=== PATIENT | female | born 1995 | race Caucasian/White ===

== ENCOUNTER 2020-08-10 12:56 | Emergency (ER) | payer OTHER ==
[~2020-08-10] VITALS: Ht 157.5 cm; Wt 55.2 kg
[2020-08-10 12:57] VITALS: BP 120/69
[2020-08-10] MEDS ORDERED: NORL0.35 PO (13:12)
--- NOTE | 2020-08-10 13:40 | REP ---
INDICATION: trauma COMPARISON: None. TECHNIQUE: AP, lateral, bilateral oblique views. FINDINGS: No acute fracture or dislocation. Skeletal structures and joint spaces are intact and normal. Ankle mortise appears stable. No subcutaneous emphysema or radiodense foreign body. IMPRESSION: Normal right ankle radiograph series. No fracture or dislocation. <Electronically signed by David Birmingham > 08/10/20 [id number]
== END 2020-08-10 14:47 | disposition home or self-care (01) ==
LOC: M ED 12:56
DX: S93.491A Sprain of other ligament of right ankle, initial encounter (principal); W10.8XXA Fall (on) (from) other stairs and steps, initial encounter; Y92.098 Other place in other non-institutional residence as the place of occurrence of the external cause; Y93.01 Activity, walking, marching and hiking; Y99.8 Other external cause status; Z79.3 Long term (current) use of hormonal contraceptives

== ENCOUNTER 2022-04-08 00:45 | Emergency (ER) | payer OTHER ==
[~2022-04-08] VITALS: Ht 157.5 cm; Wt 55.7 kg
[~2022-04-08 00:45] MED LIST changes: -ACET1PAC PO; -ACET1TAB55 PO
[2022-04-08 00:49] VITALS: BP 125/73
[2022-04-08] MEDS ORDERED: ACET1PAC PO (00:55)
== END 2022-04-08 02:27 | disposition left against medical advice (07) ==
LOC: M ED 00:45
DX: Z53.29 Procedure and treatment not carried out because of patient's decision for other reasons (principal)

== ENCOUNTER → 2022-04-08 | Outpatient (CLI) | payer OTHER ==
[~2022-04-08] MED LIST: ACET1PAC PO; ACET1TAB55 PO; NORL0.35 PO
== END ==
LOC: M RAD 13:12
PROVIDERS: ATTEND Physician Assistant Medical
DX: R10.2 Pelvic and perineal pain (principal)

== ENCOUNTER 2022-04-12 04:27 | Day surgery (SDC) | payer OTHER ==
[~2022-04-12] VITALS: Ht 157.5 cm; Wt 55.4 kg
[2022-04-12] VITALS (7 sets, daily range): BP systolic 98–128; BP diastolic 51–71
[~2022-04-12 04:27] MED LIST changes: +ACET1PAC PO
[2022-04-12 05:25] LABS: BASO # 0.1 10^3/uL (0.0-0.2); BASO % 0.5 % (0.0-1.0); EOS # 0.2 10^3/uL (0.0-0.5); EOS % 1.1 % (0.0-3.0); HEMATOCRIT 32.9 % (36.0-47.0); HEMOGLOBIN 11.3 g/dl (12.0-15.5); LYMPH # 3.5 10^3/uL (1.5-5.0); LYMPH % 22.9 % (24.0-44.0); MEAN CORPUSCULAR HEMOGLOBIN 31.7 pg (27.0-33.0); MEAN CORPUSCULAR HGB CONC 34.3 g/dl (32.0-36.5); MEAN CORPUSCULAR VOLUME 92.2 fl (80.0-96.0); MONO # 0.8 10^3/uL (0.0-0.8); NEUTROPHILS # 10.6 10^3/uL (1.5-8.5); PLATELET COUNT, AUTOMATED 269 10^3/uL (150-450); RED BLOOD COUNT 3.57 10^6/uL (4.00-5.40); WHITE BLOOD COUNT 15.2 10^3/uL (4.0-10.0)
[2022-04-12 05:52] LABS: HCG, SERUM QUALITATIVE NEGATIVE (NEGATIVE)
[2022-04-12 06:00] LABS: CK-MB VALUE MASS < 1.0 NG/ML (<3.6); CPK CREATINE PHOSPHOKINASE 83 U/L (26-192)
[2022-04-12 06:09] LABS: ALBUMIN 3.9 GM/DL (3.2-5.2); ALT/SGPT 20 U/L (12-78); AMYLASE 34 U/L (25-115); BILIRUBIN,DIRECT < 0.1 MG/DL (0.0-0.2); BILIRUBIN,TOTAL 0.2 MG/DL (0.2-1.0); BLOOD UREA NITROGEN 16 MG/DL (7-18); CALCIUM LEVEL 8.7 MG/DL (8.5-10.1); CARBON DIOXIDE LEVEL 22 MEQ/L (21-32); CHLORIDE LEVEL 108 MEQ/L (98-107); GLOMERULAR FILTRATION RATE > 60.0 (>60); GLUCOSE, FASTING 146 MG/DL (70-100); LIPASE 95 U/L (73-393); POTASSIUM SERUM 4.1 MEQ/L (3.5-5.1); SODIUM LEVEL 139 MEQ/L (136-145); TOTAL PROTEIN 6.8 GM/DL (6.4-8.2)
[2022-04-12] MEDS ORDERED: ONDANSETRON 4MG 2ML VIAL IV ONE ×2 (06:30→09:05)
[2022-04-12] MEDS ORDERED: MORPHINE 4 MG/ML 1ML VIAL/SYRINGE IV ONE (06:30)
[2022-04-12] MEDS ORDERED: ISOVUE-370 76% 100ML VIAL As Ordered ONE (06:33)
[2022-04-12] MEDS ORDERED: NS 1,000 ML IV ONE ×2 (07:00→09:05)
[2022-04-12] MEDS ORDERED: ACET1TAB55 PO (09:12)
[2022-04-12] MEDS ORDERED: HOME MED LIST COMPLETE! XX SCH (09:15)
[2022-04-12 09:27] LABS: BASO % 0.3 % (0.0-1.0); HEMATOCRIT 26.8 % (36.0-47.0); HEMOGLOBIN 9.4 g/dl (12.0-15.5); LYMPH # 1.3 10^3/uL (1.5-5.0); LYMPH % 9.5 % (24.0-44.0); MEAN CORPUSCULAR HEMOGLOBIN 32.2 pg (27.0-33.0); MEAN CORPUSCULAR HGB CONC 35.1 g/dl (32.0-36.5); MEAN CORPUSCULAR VOLUME 91.8 fl (80.0-96.0); MONO # 0.3 10^3/uL (0.0-0.8); MONO % 2.1 % (2.0-8.0); NEUTROPHILS # 11.9 10^3/uL (1.5-8.5); NEUTROPHILS % 87.6 % (36.0-66.0); PLATELET COUNT, AUTOMATED 215 10^3/uL (150-450); RED BLOOD COUNT 2.92 10^6/uL (4.00-5.40); WHITE BLOOD COUNT 13.6 10^3/uL (4.0-10.0)
[2022-04-12 09:44] LABS: RSV AMPLIFICATION NEGATIVE (NEGATIVE)
[2022-04-12 09:55] LABS: GC DNA AMPLIFICATION NEGATIVE (NEGATIVE)
[2022-04-12] MEDS ORDERED: MIDAZOLAM INJ 2MG/2ML VIAL (J2250 PER 1MG) As Ordered ONE (10:43)
[2022-04-12] MEDS ORDERED: fentaNYL 250 MCG/5 ML INJECTION As Ordered ONE (10:43)
[2022-04-12] MEDS ORDERED: ceFAZolin 2 GM/D5W 50 ML IV BAG (J0690 PER 500MG) As Ordered ONE (10:44)
[2022-04-12] MEDS ORDERED: BUPIVACAINE/EPIN 0.25% 30 ML VIAL As Ordered ONE (10:44)
[2022-04-12] MEDS ORDERED: ETOMIDATE INJ 20MG/10ML VIAL As Ordered ONE (10:45)
[2022-04-12] MEDS ORDERED: ROCURONIUM BROMIDE 50 MG/5 ML VIAL As Ordered ONE ×2 (10:45→11:42)
[2022-04-12] MEDS ORDERED: SUCCINYLCHOLINE 100 MG/5 ML SYRINGE (J0330) As Ordered ONE (11:03)
[2022-04-12] MEDS ORDERED: ACETAMINOPHEN 1000MG 100ML IV BTL (OFIRMEV) (J0131 PER 10MG) As Ordered ONE (11:21)
[2022-04-12] MEDS ORDERED: SUGAMMADEX SODIUM 500 MG/5 ML VIAL (BRIDION) As Ordered ONE (11:57)
[2022-04-12] MEDS ORDERED: KETOROLAC 60MG 2ML VIAL As Ordered ONE (12:14)
[2022-04-12] MEDS ORDERED: ONDANSETRON 4MG 2ML VIAL As Ordered ONE (12:14)
[2022-04-12] MEDS ORDERED: IBUPROFEN 600MG TAB PO SCH (12:55)
[2022-04-12] MEDS ORDERED: fentaNYL 100 MCG/2 ML INJECTION IV PRN (12:55)
[2022-04-12] MEDS ORDERED: oxyCODONE 5MG TAB PO PRN ×4 (12:55→13:00)
[2022-04-12] MEDS ORDERED: LR 1,000 ML IV SCH (12:55)
[2022-04-12] MEDS ORDERED: ACETAMINOPHEN 500 MG TAB PO SCH (12:55)
[2022-04-12] MEDS ORDERED: ONDANSETRON 4MG 2ML VIAL IV PRN ×3 (12:55→13:00)
[2022-04-12] MEDS ORDERED: MORPHINE 2 MG/ML 1ML VIAL IV PRN (12:55)
[2022-04-12] MEDS ORDERED: METOCLOPRAMIDE INJ 10MG/2ML VIAL (J2765 PER 1) As Ordered ONE (14:51)
[2022-04-12] MEDS ORDERED: dexameTHASONE 4 MG/ML 1ML VIAL (J1100 PER 1MG) As Ordered ONE (14:51)
[2022-04-12] MEDS ORDERED: propofoL 200 MG/20 ML VIAL As Ordered ONE (14:51)
[2022-04-12 16:52] LABS: HEMATOCRIT 32.8 % (36.0-47.0); HEMOGLOBIN 11.2 g/dl (12.0-15.5); MEAN CORPUSCULAR HEMOGLOBIN 30.9 pg (27.0-33.0); MEAN CORPUSCULAR HGB CONC 34.1 g/dl (32.0-36.5); MEAN CORPUSCULAR VOLUME 90.6 fl (80.0-96.0); PLATELET COUNT, AUTOMATED 167 10^3/uL (150-450); RED BLOOD COUNT 3.62 10^6/uL (4.00-5.40); WHITE BLOOD COUNT 9.9 10^3/uL (4.0-10.0)
[2022-04-12] MEDS: ACETAMINOPHEN 500 MG TAB PO SCH (20:41)
[2022-04-12] MEDS: IBUPROFEN 600MG TAB PO SCH (20:42)
[2022-04-13 00:12] VITALS: BP 94/53
[2022-04-13] MEDS: ACETAMINOPHEN 500 MG TAB PO SCH ×4 (01:17→18:00)
[2022-04-13] MEDS: IBUPROFEN 600MG TAB PO SCH ×4 (01:18→18:00)
[2022-04-13 04:06] VITALS: BP 90/46
[2022-04-13 07:53] VITALS: BP 102/65
[2022-04-13 08:26] LABS: HEMOGLOBIN 10.8 g/dl (12.0-15.5); MEAN CORPUSCULAR HEMOGLOBIN 31.6 pg (27.0-33.0); MEAN CORPUSCULAR HGB CONC 34.8 g/dl (32.0-36.5); MEAN CORPUSCULAR VOLUME 90.6 fl (80.0-96.0); PLATELET COUNT, AUTOMATED 162 10^3/uL (150-450); RED BLOOD COUNT 3.42 10^6/uL (4.00-5.40); WHITE BLOOD COUNT 8.9 10^3/uL (4.0-10.0)
[2022-04-13 12:00] VITALS: BP 105/70
[2022-04-13 16:00] VITALS: BP 112/66
== END 2022-04-13 18:42 | disposition home or self-care (01) ==
LOC: M ED 04:27 → M PED 15:00 → M ED 04-13 18:42
PROVIDERS: ATTEND Obstetrics & Gynecology
DX: K66.1 Hemoperitoneum (principal); N83.11 Corpus luteum cyst of right ovary
CPT/HCPCS: 36415; 36430; 49322; 58662; 71046; 74019; 74177; 76705; 76830; 76856; 80048; 80076; 82150; 82550; 82553; 83690; 84484; 84703; 85025; 85027; 86850; 86900; 86901; 86920; 87631; 87661; 87810; 87850; 93976; 96361; 96374; 96375; 96376; 99285; J0131; J0330; J1100; J1885; J2250; J2270; J2405; J2765; J3010; P9016; Q9967

== ENCOUNTER → 2023-04-11 | Outpatient (REF) | payer OTHER ==
[~2023-04-11] MED LIST changes: +ACET1TAB55 PO
[2023-04-11 16:43] LABS: APPEARANCE, URINE HAZY (CLEAR); BACTERIA, URINE AUTO NEGATIVE (NEGATIVE); BILIRUBIN, URINE AUTO NEGATIVE (NEGATIVE); BLOOD, URINE BLOOD NEGATIVE (NEGATIVE); COLOR, URINE YELLOW (YELLOW); GLUCOSE, URINE (UA) AUTO NEGATIVE (NEGATIVE); KETONE, URINE AUTO NEGATIVE (NEGATIVE); LEUKOCYTE ESTERASE, URINE AUTO 2+ (NEGATIVE); MUCUS, URINE SMALL (NEGATIVE); NITRITE, URINE AUTO NEGATIVE (NEGATIVE); PROTEIN, URINE AUTO NEGATIVE (NEGATIVE); RBC, URINE AUTO 6 /HPF (0-3); SPECIFIC GRAVITY URINE AUTO 1.014 (1.002-1.035); SQUAMOUS EPITHELIAL CELL UR AU 2 /HPF (0-6); UROBILINOGEN, URINE AUTO 0.2 mg/dL (0.0-2.0); WBC, URINE AUTO 153 /HPF (0-3)
== END ==
LOC: M LAB REF 16:12
PROVIDERS: ATTEND Physician Assistant Medical
DX: N39.0 Urinary tract infection, site not specified (principal)

== ENCOUNTER → 2023-08-29 | Outpatient (CLI) | payer OTHER | LOC: M WUC 14:53 | PROVIDERS: ATTEND Registered Nurse | DX: M54.50 Low back pain, unspecified (principal) ==

== ENCOUNTER 2023-12-06 22:27 | Emergency (ER) | payer OTHER ==
[~2023-12-06] VITALS: Ht 157.5 cm; Wt 57.7 kg
[2023-12-07 00:23] LABS: BASO # 0.1 10^3/uL (0.0-0.2); EOS # 0.2 10^3/uL (0.0-0.5); EOS % 2.1 % (0.0-3.0); HEMATOCRIT 36.7 % (36.0-47.0); HEMOGLOBIN 12.9 g/dl (12.0-15.5); LYMPH # 3.2 10^3/uL (1.5-5.0); LYMPH % 44.4 % (24.0-44.0); MEAN CORPUSCULAR HEMOGLOBIN 32.3 pg (27.0-33.0); MEAN CORPUSCULAR HGB CONC 35.1 g/dl (32.0-36.5); MONO # 0.7 10^3/uL (0.0-0.8); MONO % 8.9 % (2.0-8.0); NEUTROPHILS # 3.2 10^3/uL (1.5-8.5); NEUTROPHILS % 43.6 % (36.0-66.0); PLATELET COUNT, AUTOMATED 270 10^3/uL (150-450); RED BLOOD COUNT 3.99 10^6/uL (4.00-5.40); WHITE BLOOD COUNT 7.3 10^3/uL (4.0-10.0)
[2023-12-07 00:42] LABS: LIPASE 31 U/L (12-53)
[2023-12-07 00:44] LABS: ALBUMIN 4.1 G/DL (3.2-5.2); ALKALINE PHOSPHATASE 65 U/L (46-116); ALT/SGPT 16 U/L (7.0-40); AST/SGOT 13 U/L (<34); BILIRUBIN,DIRECT 0.1 MG/DL (<0.4); BILIRUBIN,TOTAL 0.3 MG/DL (0.3-1.2); BLOOD UREA NITROGEN 16 MG/DL (9-23); CALCIUM LEVEL 9.5 MG/DL (8.5-10.1); CARBON DIOXIDE LEVEL 28 MMOL/L (20-31); CHLORIDE LEVEL 105 MMOL/L (98-107); CREATININE FOR GFR 0.85 MG/DL (0.55-1.30); GLOMERULAR FILTRATION RATE > 60.0 (>60); GLUCOSE, FASTING 83 MG/DL (60-100); POTASSIUM SERUM 4.1 MMOL/L (3.5-5.1); SODIUM LEVEL 139 MMOL/L (136-145); TOTAL PROTEIN 6.9 G/DL (5.7-8.2)
[2023-12-07 01:10] LABS: HCG, SERUM QUALITATIVE NEGATIVE (NEGATIVE)
[2023-12-07 02:37] LABS: GC DNA AMPLIFICATION NEGATIVE (NEGATIVE)
[2023-12-07 04:14] LABS: Trichomonas vaginalis (AMP) NOT DETECTED (NEGATIVE)
[2023-12-07 06:00] VITALS: BP 125/75; TEMP 97.8; O2SAT 99
[2023-12-07] MEDS ORDERED: GASTROGRAFIN SOLUTION 30ML PO SCH (06:15)
== END 2023-12-07 06:04 | disposition left against medical advice (07) ==
LOC: M ED 22:27
DX: R10.9 Unspecified abdominal pain (principal); F10.10 Alcohol abuse, uncomplicated; Z53.9 Procedure and treatment not carried out, unspecified reason

== ENCOUNTER → 2025-04-03 | Outpatient (CLI) | payer OTHER | LOC: M PLARAD 09:04 | PROVIDERS: ATTEND Nurse Practitioner Adult Health | DX: G43.909 Migraine, unspecified, not intractable, without status migrainosus (principal) ==